=== PATIENT | female | born 1995 | race Caucasian/White ===

== ENCOUNTER 2021-11-28 13:02 | Emergency (ER) | payer BC ==
[~2021-11-28] VITALS: Ht 162.6 cm; Wt 113.6 kg
[2021-11-28] MEDS ORDERED: CYCLOBENZAPRINE HCL 10 MG TABLET PO ONE (16:15)
[2021-11-28] MEDS ORDERED: LIDOCAINE 5% TRANSDERMAL PATCH TD ONE (16:15)
[2021-11-28] MEDS ORDERED: KETOROLAC TROMETHAMINE 30 MG/ML VIAL IM ONE (16:15)
[2021-11-28 17:20] VITALS: BP 128/64
[2021-11-28] MEDS ORDERED: IBUP-2070 PO (17:33)
[2021-11-28] MEDS ORDERED: CYCL-448 PO (17:33)
== END 2021-11-28 18:02 | disposition home or self-care (01) ==
LOC: EMS 13:02
DX: M54.50 Low back pain, unspecified (principal)
CPT/HCPCS: 99283; 96372; J1885